=== PATIENT | male | born 1955 ===

== ENCOUNTER 2017-06-08 21:41 | Emergency (ER) | payer MEDICAID, SELFPAY ==
[2017-06-08 22:16] VITALS: TEMP 98.2
[2017-06-08 22:32] LABS: BASO # 0.02 K/mm3 (0.0-2.0); BASO % 0.3 % (0.0-3.0); EOS # 0.2 (0.0-0.7); EOS % 2.9 % (1.5-5.0); GRAN # 2.37 (1.4-6.5); GRAN % 41.1 % (50.0-68.0); HEMOGLOBIN 15.5 g/dL (14.0-18.0); LYMPH # 2.7 (1.2-3.4); LYMPH % 46.4 % (22.0-35.0); MEAN CELL VOLUME 89.3 fl (80.0-105.0); MEAN CORPUSCULAR HEMOGLOBIN 30.7 pg (25.0-35.0); MEAN CORPUSCULAR HGB CONC 34.4 g/dl (31.0-37.0); MEAN PLATELET VOLUME 10.6 fl (7.0-11.0); MONO # 0.5 (0.1-0.6); MONO % 9.3 % (1.0-6.0); RBC 5.05 10^6/uL (3.5-6.1); RED CELL DISTRIBUTION WIDTH 13.2 % (11.5-14.5); WHITE BLOOD COUNT 5.8 10^3/ul (4.5-11.0)
[2017-06-08 22:36] VITALS: PULSE 63; O2SAT 95
[2017-06-08 22:38] LABS: ALB/GLOB RATIO 1.3 (1.1-1.8); ALBUMIN 4.7 g/dL (3.0-4.8); ALT/SGPT 69 U/L (7-56); AST/SGOT 46 U/L (17-59); BLOOD UREA NITROGEN 19 mg/dL (7-21); CALCIUM 10.2 mg/dL (8.4-10.5); GFR AFRICAN-AMERICAN > 60; GFR NON-AFRICAN AMERICAN > 60
[2017-06-08 22:39] LABS: PARTIAL THROMBOPLASTIN TIME 35.4 Seconds (25.1-36.5); PROTHROMBIN TIME 11.5 SECONDS (9.4-12.5)
--- NOTE | 2017-06-08 22:39 | ED PDOC ---
Arrival/HPI - General Chief Complaint: High Blood Pressure Time Seen by Provider: 06/08/17 21:51 Historian: Patient - History of Present Illness Narrative History of Present Illness (Text): 06/08/17 22:39 62yo male with Past medical history of hypertension who present to Emergency department for evaluation of hypertension. Notes that his BP was 160 /? at home. Notes mild headache. States he usually takes his antihypertensives in the morning, but he ran out of it today and was able to get 5tabs from his Pharmacist today, so he took it late. He otherwise denies chest pain, shortness of breath, diaphoresis, LE edema, focal weakness, slurred speech, dizziness, any other complaint. Past Medical History - Provider Review Nursing Documentation Reviewed: Yes - Cardiac Hx Hypertension: Yes - Psychiatric Hx Substance Use: No - Suicidal Assessment Feels Threatened In Home Enviroment: No Family/Social History - Physician Review Nursing Documentation Reviewed: Yes Family/Social History: Unknown Family HX Smoking Status: n Hx Alcohol Use: No Hx Substance Use: No Allergies/Home Meds Allergies/Adverse Reactions: Allergies No Known Allergies Allergy (Unverified 11/03/12 13:00) Home Medications: Home Meds Medication Instructions Recorded Confirmed amLODIPine [Norvasc] 5 mg PO DAILY 06/08/17 06/08/17 Review of Systems - Physician Review All systems were reviewed & negative as marked: Yes - Review of Systems Constitutional: Other (Elevated BP) Eyes: Normal ENT: Normal Respiratory: Normal Cardiovascular: Normal Gastrointestinal: Normal Genitourinary Male: Normal Musculoskeletal: Normal Skin: Normal Neurological: Normal Endocrine: Normal Hemo/Lymphatic: Normal Psychiatric: Normal Physical Exam Vital Signs Reviewed: Yes Vital Signs Temp Pulse Resp BP Pulse Ox 06/08/17 23:09 63 18 142/87 95 06/08/17 22:36 63 19 138/90 95 06/08/17 22:19 67 170/105 H 06/08/17 21:53 98.2 F 62 18 98 06/08/17 21:42 62 18 179/99 H 98 Temperature: Afebrile Blood Pressure: Hypertensive Pulse: Regular Respiratory Rate: Normal Appearance: Positive for: Well-Appearing, Non-Toxic, Comfortable Pain Distress: None Mental Status: Positive for: Alert and Oriented X 3 - Systems Exam Head: Present: Atraumatic, Normocephalic Pupils: Present: PERRL Extroacular Muscles: Present: EOMI Conjunctiva: Present: Normal Mouth: Present: Moist Mucous Membranes Neck: Present: Normal Range of Motion Respiratory/Chest: Present: Clear to Auscultation, Good Air Exchange. No: Respiratory Distress, Accessory Muscle Use Cardiovascular: Present: Regular Rate and Rhythm, Normal S1, S2. No: Murmurs Abdomen: No: Tenderness, Distention, Peritoneal Signs Back: Present: Normal Inspection Upper Extremity: Present: Normal Inspection. No: Cyanosis, Edema Lower Extremity: Present: Normal Inspection. No: Edema Neurological: Present: GCS=15, CN II-XII Intact, Speech Normal, Motor Func Grossly Intact, Normal Sensory Function, Normal Cerebellar Funct, Norm Deep Tendon Reflexes, Gait Normal, Memory Normal, Normal 2Pt Descrimination Skin: Present: Warm, Dry, Normal Color. No: Rashes Psychiatric: Present: Alert, Oriented x 3, Normal Insight, Normal Concentration Medical Decision Making ED Course and Treatment: 06/09/17 00:32 PT was not in any distress in Emergency department. He was comfortable. His BP improved in Emergency department with medication. Lab was unremarkable. He notes that he have appointment with his PMD tomorrow. He was DC home to f/u with his PMD tomorrow. - Lab Interpretations Lab Results: 06/08/17 22:07 06/08/17 22:07 Lab Results 06/08/17 22:07: PT 11.5, INR 1.00, APTT 35.4 06/08/17 22:07: Sodium 147, Potassium 4.0, Chloride 104, Carbon Dioxide 30, Anion Gap 17, BUN 19, Creatinine 1.1, Est GFR ( Amer) > 60, Est GFR (Non- Af Amer) > 60, Random Glucose 91, Calcium 10.2, Magnesium 2.4 H, Total Bilirubin 1.1, AST 46, ALT 69 H, Alkaline Phosphatase 77, Lactate Dehydrogenase 659, Total Creatine Kinase 281 H, CK-MB (CK-2) 2.0, CK-MB (CK-2) % Cancelled, Troponin I < 0.01, Total Protein 8.2, Albumin 4.7, Globulin 3.5, Albumin/ Globulin Ratio 1.3 06/08/17 22:07: WBC 5.8, RBC 5.05, Hgb 15.5, Hct 45.1, MCV 89.3, MCH 30.7, MCHC 34.4, RDW 13.2, Plt Count 160, MPV 10.6, Gran % 41.1 L, Lymph % (Auto) 46.4 H, [place] % (Auto) 9.3 H, Eos % (Auto) 2.9, Baso % (Auto) 0.3, Gran # 2.37, Lymph # ( Auto) 2.7, [place] # (Auto) 0.5, Eos # (Auto) 0.2, Baso # (Auto) 0.02 - Medication Orders Current Medication Orders: Discontinued Medications Hydralazine HCl (Apresoline) 10 mg IVP STAT STA Stop: 06/08/17 22:09 Last Admin: 06/08/17 22:19 Dose: 10 mg IVP Administration Document 06/08/17 22:19 [place] (Rec: 06/08/17 22:19 [id number]) Charges for Administration # of IVP Administrations 1 MAY Pulse and Blood Pressure Document 06/08/17 22:19 [place] (Rec: 06/08/17 22:19 [id number] Pulse Pulse Rate (60-90) 67 Blood Pressure Blood Pressure (100/60-150/90) 170/105 Disposition/Present on Arrival - Present on Arrival Any Indicators Present on Arrival: No History of DVT/PE: No History of Uncontrolled Diabetes: No Urinary Catheter: No History of Decub. Ulcer: No History Surgical Site Infection Following: None - Disposition Have Diagnosis and Disposition been Completed?: Yes Diagnosis: Hypertension Disposition: HOME/ ROUTINE Disposition Time: 23:10 Patient Plan: Discharge Condition: IMPROVED Discharge Instructions (ExitCare): High Blood Pressure in Adults Additional Instructions: Follow up with your Doctor Return to Emergency department for any new or worsening symptoms Prescriptions: amLODIPine [Norvasc] 5 mg PO DAILY #20 tab Referrals: Adrian Barba MD [Primary Care Provider] - Follow up with primary Forms: [employer] ([place])
[2017-06-08 22:49] LABS: TROPONIN I < 0.01 ng/mL
[2017-06-08] MEDS ORDERED: Levalbuterol 1.25 MG/3 ML Inhal Soln UD IH STA (22:55)
[2017-06-08 23:09] VITALS: BP 142/87; RESP 18
--- NOTE | 2017-06-09 17:44 | CARD ---
APPROVED REPORT EKG Measurement Heart [id number] <Conclusion> Sinus rhythm with 1st degree AV block Minimal voltage criteria for LVH, may be normal variant Borderline ECG
== END 2017-06-08 23:24 | disposition home or self-care (01) ==
LOC: ED 21:41
DX: I10 Essential (primary) hypertension (principal)
CPT/HCPCS: 80053; 82550; 82553; 83615; 83735; 84484; 85025; 85610; 85730; 93005; 96374; 99285; J0360